=== PATIENT | male | born 1980 | race Caucasian/White ===

== ENCOUNTER 2020-09-18 12:44 | Observation (INO) | payer OTHER ==
--- NOTE | 2020-09-18 12:53 | ERPHSYRPT ---
- History of Present Illness Time Seen by Provider: 09/18/20 13:00 Historian: patient Physician History: Patient is a 40-year-old male presents to our ED with complaints of left-sided chest pain. Chest pain started this morning as he was getting ready for work. Chest pain described as a ache and is intermittent. Pain tends to radiate down his left arm. No associated nausea vomiting or diaphoresis. Patient denies a history of the same. Symptoms are mild to moderate in intensity. No specific worsening or improving factors. Patient voices no other complaints or concerns at this time. Timing/Duration: today Activities at Onset: other Quality: aching (Getting ready for work when pain started.) Location: other (Last) Chest Pain Radiation: arm Severity of Pain-Max: moderate Severity of Pain-Current: mild Modifying Factors: Improves With: nothing Associated Symptoms: No nausea, No vomiting, No palpitations, No heartburn, No abdominal pain, No shortness of breath, No cough, No hurts to breathe, No diaphoresis, No chills, No fever, No fatigue, No weakness, No syncope, No rash, No headache, No dizziness, No edema Prior Chest Pain/Cardiac Workup: no prior chest pain Nitro Today/Relief: no nitro taken today Aspirin Treatment Today: no aspirin today Allergies/Adverse Reactions: No Known Drug Allergies Allergy (Verified 09/18/20 12:56) - Review of Systems Constitutional: No Symptoms, No Fever, No Chills Eyes: No Symptoms Ears, Nose, & Throat: No Symptoms Respiratory: No Symptoms, No Cough, No Dyspnea Cardiac: No Symptoms, No Chest Pain, No Edema, No Syncope Abdominal/Gastrointestinal: No Symptoms, No Abdominal Pain, No Nausea, No Vomiting, No Diarrhea Genitourinary Symptoms: No Symptoms, No Dysuria Musculoskeletal: No Symptoms, No Back Pain, No Neck Pain Skin: No Symptoms, No Rash Neurological: No Symptoms, No Dizziness, No Focal Weakness, No Sensory Changes Psychological: No Symptoms Endocrine: No Symptoms Hematologic/Lymphatic: No Symptoms Immunological/Allergic: No Symptoms All Other Systems: Reviewed and Negative - Nursing Vital Signs Nursing Vital Signs: Initial Vital Signs Temperature 98.9 F 09/18/20 12:47 Pulse Rate 72 09/18/20 12:47 Respiratory Rate 20 09/18/20 12:47 Blood Pressure 154/84 09/18/20 12:47 O2 Sat by Pulse Oximetry 99 11/24/20 12:47 Pain Scale Pain Intensity 0 - Physical Exam General Appearance: no apparent distress, alert Eye Exam: PERRL/EOMI, eyes nml inspection Ears, Nose, Throat Exam: normal ENT inspection, moist mucous membranes Neck Exam: normal inspection, non-tender, supple, full range of motion Respiratory Exam: normal breath sounds, lungs clear, No respiratory distress Cardiovascular Exam: regular rate/rhythm, normal heart sounds Gastrointestinal/Abdomen Exam: soft, No tenderness, No mass Back Exam: normal inspection, No CVA tenderness, No vertebral tenderness Extremity Exam: normal inspection, normal range of motion Neurologic Exam: alert, oriented x 3, cooperative, normal mood/affect, sensation nml, No motor deficits Skin Exam: normal color, warm, dry SpO2 Interpretation: normal SpO2: 98 O2 Delivery: Room Air - Course Nursing assessment & vital signs reviewed: Yes EKG Interpreted by Me: RATE (76), Sinus Rhythm, NORMAL AXIS, NORMAL INTERVALS - Radiology Exams Chest X-ray Interpretation: Teleradiologist Report (No acute pathology observed on chest x-ray.) Ordered Tests: Active Orders 24 hr Category Date Time Status High Density Press Operator STAT Care 09/18/20 12:46 Active EKG-ER Only STAT Care 09/18/20 12:45 Active IV Insertion STAT Care 09/18/20 12:45 Active Pulse Oximetry (ED) STAT Care 09/18/20 12:45 Active CHEST 1 VIEW (PORTABLE) Stat Exams 09/18/20 12:46 Completed CBC W DIFF Stat Lab 09/18/20 13:15 Completed CMP Stat Lab 09/18/20 13:15 Completed D-DIMER QUANTITATIVE Stat Lab 09/18/20 13:15 Completed TROPONIN Q3H Lab 09/18/20 13:15 Completed TROPONIN Q3H Lab 09/18/20 16:00 Ordered TROPONIN Q3H Lab 09/18/20 19:00 Ordered TROPONIN Q3H Lab 09/18/20 22:00 Ordered TROPONIN Q3H Lab 09/19/20 01:00 Ordered Transfer Order Routine Transfer 09/18/20 Ordered Medication Summary Discontinued Medications Generic Name Dose Route Start Last Admin Trade Name Freq PRN Reason Stop Dose Admin Aspirin 324 mg 09/18/20 14:01 09/18/20 14:10 Baby Aspirin 81 Mg Chew PO 09/18/20 14:02 Not Given STAT ONE Nitroglycerin 1 gm 09/18/20 14:02 09/18/20 14:06 Nitro-Bid 2% Ud Packets TOP 09/18/20 14:03 1 gm STAT ONE Administration Nitroglycerin Confirm 09/18/20 14:05 Nitro-Bid 2% Ud Packets Administered 09/18/20 14:06 Dose 1 gm .ROUTE .STK-MED ONE Lab/Rad Data: Laboratory Result Diagrams 09/18/20 13:15 09/18/20 13:15 Laboratory Results 09/18/20 09/18/20 09/18/20 Range/Units 13:15 13:15 13:15 WBC (4.0-10.5) K/mm3 RBC (4.1-5.6) M/mm3 Hgb (12.5-18.0) gm/dl Hct (42-50) % MCV (78-100) fl MCH (26-32) pg MCHC (32-36) g/dl RDW (11.5-14.0) % Plt Count (150-450) K/mm3 MPV (7.5-11.0) fl Gran % (36.0-66.0) % Eos # (Auto) (0-0.5) Absolute Lymphs (auto) (1.0-4.6) Absolute Monos (auto) (0.0-1.3) Lymphocytes % (24.0-44.0) % Monocytes % (0.0-12.0) % Eosinophils % (0.00-5.0) % Basophils % (0.0-0.4) % Absolute Granulocytes (1.4-6.9) Basophils # (0-0.4) D-Dimer < 215 L (215-500) ng/mL Sodium 138 (137-145) mmol/L Potassium 4.7 (3.5-5.1) mmol/L Chloride 109 H (98-107) mmol/L Carbon Dioxide 22 (22-30) mmol/L Anion Gap 11.2 (5-15) MEQ/L BUN 17 (9-20) mg/dL Creatinine 0.82 (0.66-1.25) mg/dL Estimated GFR > 60.0 ML/MIN Glucose 102 (74-106) mg/dL Calcium 9.1 (8.4-10.2) mg/dL Total Bilirubin 0.60 (0.2-1.3) mg/dL AST 38 (17-59) U/L ALT 37 (0-50) U/L Alkaline Phosphatase 53 (38-126) U/L Troponin I < 0.012 (0.000-0.034) ng/mL Serum Total Protein 6.9 (6.3-8.2) g/dL Albumin 4.0 (3.5-5.0) g/dL 09/18/20 Range/Units 13:15 WBC 6.3 (4.0-10.5) K/mm3 RBC 5.25 (4.1-5.6) M/mm3 Hgb 16.1 (12.5-18.0) gm/dl Hct 45.2 (42-50) % MCV 86.1 (78-100) fl MCH 30.7 (26-32) pg MCHC 35.6 (32-36) g/dl RDW 12.4 (11.5-14.0) % Plt Count 240 (150-450) K/mm3 MPV 9.2 (7.5-11.0) fl Gran % 61.8 (36.0-66.0) % Eos # (Auto) 0.15 (0-0.5) Absolute Lymphs (auto) 1.76 (1.0-4.6) Absolute Monos (auto) 0.47 (0.0-1.3) Lymphocytes % 27.9 (24.0-44.0) % Monocytes % 7.4 (0.0-12.0) % Eosinophils % 2.4 (0.00-5.0) % Basophils % 0.5 (0.0-0.4) % Absolute Granulocytes 3.90 (1.4-6.9) Basophils # 0.03 (0-0.4) D-Dimer (215-500) ng/mL Sodium (137-145) mmol/L Potassium (3.5-5.1) mmol/L Chloride (98-107) mmol/L Carbon Dioxide (22-30) mmol/L Anion Gap (5-15) MEQ/L BUN (9-20) mg/dL Creatinine (0.66-1.25) mg/dL Estimated GFR ML/MIN Glucose (74-106) mg/dL Calcium (8.4-10.2) mg/dL Total Bilirubin (0.2-1.3) mg/dL AST (17-59) U/L ALT (0-50) U/L Alkaline Phosphatase (38-126) U/L Troponin I (0.000-0.034) ng/mL Serum Total Protein (6.3-8.2) g/dL Albumin (3.5-5.0) g/dL - Progress Progress: improved Air Movement: good Progress Note: 09/18/20 16:02 Patient reassessed. No active chest pain since aspirin and nitro paste applied. Patient is a significant family history of heart attacks, patient's grandfather had a heart attack at age 40s in light of patient's symptoms history of present illness we will admit for cardiac rule out possible stress test. Case discussed with Dr. Martel who accepts admission. Patient does not have a primary care doctor that covers our hospital so Dr. Martel will admit patient. Plan of care discussed with patient. He agrees to admission to [facility] for further evaluation and treatment. Blood Culture(s) Obtained: No Antibiotics given: No Discussed with : Dimitri Will see patient in: hospital (observation) Counseled pt/family regarding: lab results, diagnosis, rad results - Departure Departure Disposition: Observation Clinical Impression: ACS (acute coronary syndrome) Condition: Stable Critical Care Time: No Referrals: HAI MIR NP [Primary Care Provider] -
--- NOTE | 2020-09-18 13:11 | XRAY ---
Indication: Chest pain. Comparison: December 15, 2018. Portable chest unchanged again demonstrating minimal bibasilar subsegmental atelectasis/scarring. Remaining heart, lungs, and bony thorax again normal.
[2020-09-18 13:34] LABS: BASOPHIL % 0.5 % (0.0-0.4); Basophil (Absolute #) 0.03 (0-0.4); Eosinophil % 2.4 % (0.00-5.0); Eosinophil (Absolute #) 0.15 (0-0.5); Hematocrit 45.2 % (42-50); Hemoglobin 16.1 gm/dl (12.5-18.0); Lymphocyte (Absolute #) 1.76 (1.0-4.6); Lymphocytes % 27.9 % (24.0-44.0); Mean Cell Volume 86.1 fl (78-100); Mean Corpuscular Hemoglobin 30.7 pg (26-32); Mean Corpuscular Hgb Concent. 35.6 g/dl (32-36); Mean Platelet Volume 9.2 fl (7.5-11.0); Monocyte (Absolute #) 0.47 (0.0-1.3); Monocytes % 7.4 % (0.0-12.0); Neutrophil % 61.8 % (36.0-66.0); Platelet Count 240 K/mm3 (150-450); Red Blood Count 5.25 M/mm3 (4.1-5.6); Red Cell Distribution Width 12.4 % (11.5-14.0); White Blood Count 6.3 K/mm3 (4.0-10.5)
[2020-09-18 13:53] LABS: ALKALINE PHOSPHATASE 53 U/L (38-126); ANION GAP 11.2 MEQ/L (5-15); BLOOD UREA NITROGEN 17 mg/dL (9-20); CHLORIDE 109 mmol/L (98-107); Calcium 9.1 mg/dL (8.4-10.2); Carbon Dioxide 22 mmol/L (22-30); Creatinine 1 0.82 mg/dL (0.66-1.25); EST GLOMERULAR FILTRATION RATE > 60.0 ML/MIN; Glucose 102 mg/dL (74-106); Potassium 4.7 mmol/L (3.5-5.1); SGOT/AST 38 U/L (17-59); SGPT/ALT 37 U/L (0-50); SODIUM 138 mmol/L (137-145); Total Protein 6.9 g/dL (6.3-8.2)
[2020-09-18] MEDS ORDERED: BABY ASPIRIN 81 MG CHEW PO ONE (14:01)
[2020-09-18] MEDS ORDERED: NITRO-BID 2% UD PACKETS TOP ONE (14:02)
[2020-09-18] MEDS ORDERED: NITRO-BID 2% UD PACKETS ONE (14:05)
[2020-09-18] MEDS ORDERED: MILK OF MAGNESIA 30 ML PO PRN (16:21)
[2020-09-18] MEDS ORDERED: Zofran 4 MG/2 ML VIAL IV PRN (16:21)
[2020-09-18] MEDS ORDERED: Senokot-S Tablet PO PRN (16:21)
[2020-09-18] MEDS ORDERED: MAALOX ES 30 ML UNIT DOSE PO PRN (16:21)
[2020-09-18] MEDS ORDERED: MORPHINE SULFATE 2 MG INJ IV ONE (19:05)
[2020-09-18] MEDS: TYLENOL 325 MG PO PRN (22:08)
[2020-09-19 01:50] LABS: Risk Ratio 6.1
[2020-09-19] MEDS: TYLENOL 325 MG PO PRN (08:18)
--- NOTE | 2020-09-19 08:40 | PCM.SSS ---
History of Present Illness - Chief Complaint Chief Complaint: ACS History of Present Illness: is a 40 year old male with no local physician who arrived to the ER yesterday, he had acute onset of left sided chest pain on his way to work yesterday. He describes a dull aching that was severe and radiated to his left arm. There was no associated nausea, shortness of breath or diaphoresis. He states the pain was severe enough that it brought him to tears. He responded to aspirin and nitro well in the ER, now has some headache, states he had some mild dull ache in his chest overnight but nothing severe. He has a strong family history of premature coronary disease and his mother has what sounds like a tachy-arrythmia of some sort. - Review of Systems Constitutional: No Fever, No Chills Respiratory: No Cough, No Short Of Breath Cardiac: Chest Pain Abdominal/Gastrointestinal: No Abdominal Pain, No Nausea, No Vomiting, No Diarrhea Genitourinary Symptoms: No Dysuria Skin: No Rash Neurological: No Dizziness, No Focal Weakness, No Sensory Changes All Other Systems: Reviewed and Negative Medications & Allergies Home Medications: Home Medication List Aspirin EC 81 mg [Ecotrin 81 mg] 81 mg PO DAILY #30 tablet 09/19/20 [Rx] Atorvastatin Calcium 20 mg PO DAILY #30 tablet 09/19/20 [Rx] Nitroglycerin 0.4 mg Tablet [Nitrostat 0.4 MG Tablet] 0.4 mg SL UD #25 bottle 09/19/20 [Rx] Allergies/Adverse Reactions: Allergies Allergy/AdvReac Type Severity Reaction Status Date / Time No Known Drug Allergies Allergy Verified 09/18/20 12:56 - Past Medical History Past Medical History: No Neurological History: No Pertinent History ENT History: No Pertinent History Cardiac History: No Pertinent History Respiratory History: No Pertinent History Endocrine Medical History: No Pertinent History Musculoskelatal History: No Pertinent History GI Medical History: No Pertinent History History: No Pertinent History Pyscho-Social History: No Pertinent History Male Reproductive Disorders: No Pertinent History - Past Surgical History Past Surgical History: Yes GI Surgical History: Cholecystectomy - Social History Smoking Status: Never smoker Exposure to second hand smoke: No Alcohol: Daily Drug Use: none - Physical Exam Vital Signs: Vital Signs - 24 hr Temp Pulse Resp BP Pulse Ox 09/19/20 08:00 97.9 F 74 16 152/76 96 09/19/20 04:22 97.7 F 66 15 128/65 97 09/18/20 23:51 98.0 F 68 18 107/52 98 09/18/20 20:19 98.1 F 72 20 159/77 97 09/18/20 17:00 122/63 98 09/18/20 16:53 97.9 F 68 16 122/63 96 09/18/20 16:21 97.9 F 68 16 122/63 96 09/18/20 16:04 98 09/18/20 16:00 97.9 F 68 16 122/63 96 09/18/20 15:43 69 14 114/64 97 09/18/20 14:55 98.2 F 72 20 123/70 98 09/18/20 13:56 98.2 F 74 20 110/73 98 09/18/20 12:58 98 09/18/20 12:47 98.9 F 72 20 154/84 99 General Appearance: no apparent distress, alert Neurologic Exam: alert, oriented x 3, cooperative, normal mood/affect, nml cerebellar function, nml station & gait, sensation nml, No motor deficits Respiratory Exam: normal breath sounds, lungs clear, No respiratory distress Cardiovascular Exam: regular rate/rhythm, normal heart sounds, normal peripheral pulses Gastrointestinal/Abdomen Exam: soft, normal bowel sounds, No tenderness, No mass Extremity Exam: normal inspection, normal range of motion, pelvis stable Skin Exam: normal color, warm, dry, No rash Results - Labs Lab/Micro Results: Lab Results-Last 24 Hours 09/18/20 09/18/20 09/18/20 Range/Units 13:15 13:15 13:15 WBC 6.3 (4.0-10.5) K/mm3 RBC 5.25 (4.1-5.6) M/mm3 Hgb 16.1 (12.5-18.0) gm/dl Hct 45.2 (42-50) % MCV 86.1 (78-100) fl MCH 30.7 (26-32) pg MCHC 35.6 (32-36) g/dl RDW 12.4 (11.5-14.0) % Plt Count 240 (150-450) K/mm3 MPV 9.2 (7.5-11.0) fl Gran % 61.8 (36.0-66.0) % Eos # (Auto) 0.15 (0-0.5) Absolute Lymphs (auto) 1.76 (1.0-4.6) Absolute Monos (auto) 0.47 (0.0-1.3) Lymphocytes % 27.9 (24.0-44.0) % Monocytes % 7.4 (0.0-12.0) % Eosinophils % 2.4 (0.00-5.0) % Basophils % 0.5 (0.0-0.4) % Absolute Granulocytes 3.90 (1.4-6.9) Basophils # 0.03 (0-0.4) D-Dimer < 215 L (215-500) ng/mL Sodium 138 (137-145) mmol/L Potassium 4.7 (3.5-5.1) mmol/L Chloride 109 H (98-107) mmol/L Carbon Dioxide 22 (22-30) mmol/L Anion Gap 11.2 (5-15) MEQ/L BUN 17 (9-20) mg/dL Creatinine 0.82 (0.66-1.25) mg/dL Estimated GFR > 60.0 ML/MIN Glucose 102 (74-106) mg/dL Calcium 9.1 (8.4-10.2) mg/dL Total Bilirubin 0.60 (0.2-1.3) mg/dL AST 38 (17-59) U/L ALT 37 (0-50) U/L Alkaline Phosphatase 53 (38-126) U/L Troponin I (0.000-0.034) ng/mL Serum Total Protein 6.9 (6.3-8.2) g/dL Albumin 4.0 (3.5-5.0) g/dL Triglycerides (30-150) mg/dL Cholesterol (50-200) mg/dL LDL Cholesterol (30-100) mg/dL HDL Cholesterol (40-60) mg/dL Heart Disease Risk Ratio 09/18/20 09/18/20 09/18/20 Range/Units 13:15 16:07 19:00 WBC (4.0-10.5) K/mm3 RBC (4.1-5.6) M/mm3 Hgb (12.5-18.0) gm/dl Hct (42-50) % MCV (78-100) fl MCH (26-32) pg MCHC (32-36) g/dl RDW (11.5-14.0) % Plt Count (150-450) K/mm3 MPV (7.5-11.0) fl Gran % (36.0-66.0) % Eos # (Auto) (0-0.5) Absolute Lymphs (auto) (1.0-4.6) Absolute Monos (auto) (0.0-1.3) Lymphocytes % (24.0-44.0) % Monocytes % (0.0-12.0) % Eosinophils % (0.00-5.0) % Basophils % (0.0-0.4) % Absolute Granulocytes (1.4-6.9) Basophils # (0-0.4) D-Dimer (215-500) ng/mL Sodium (137-145) mmol/L Potassium (3.5-5.1) mmol/L Chloride (98-107) mmol/L Carbon Dioxide (22-30) mmol/L Anion Gap (5-15) MEQ/L BUN (9-20) mg/dL Creatinine (0.66-1.25) mg/dL Estimated GFR ML/MIN Glucose (74-106) mg/dL Calcium (8.4-10.2) mg/dL Total Bilirubin (0.2-1.3) mg/dL AST (17-59) U/L ALT (0-50) U/L Alkaline Phosphatase (38-126) U/L Troponin I < 0.012 < 0.012 < 0.012 (0.000-0.034) ng/mL Serum Total Protein (6.3-8.2) g/dL Albumin (3.5-5.0) g/dL Triglycerides (30-150) mg/dL Cholesterol (50-200) mg/dL LDL Cholesterol (30-100) mg/dL HDL Cholesterol (40-60) mg/dL Heart Disease Risk Ratio 09/18/20 09/19/20 09/19/20 Range/Units 22:05 01:28 01:28 WBC (4.0-10.5) K/mm3 RBC (4.1-5.6) M/mm3 Hgb (12.5-18.0) gm/dl Hct (42-50) % MCV (78-100) fl MCH (26-32) pg MCHC (32-36) g/dl RDW (11.5-14.0) % Plt Count (150-450) K/mm3 MPV (7.5-11.0) fl Gran % (36.0-66.0) % Eos # (Auto) (0-0.5) Absolute Lymphs (auto) (1.0-4.6) Absolute Monos (auto) (0.0-1.3) Lymphocytes % (24.0-44.0) % Monocytes % (0.0-12.0) % Eosinophils % (0.00-5.0) % Basophils % (0.0-0.4) % Absolute Granulocytes (1.4-6.9) Basophils # (0-0.4) D-Dimer (215-500) ng/mL Sodium (137-145) mmol/L Potassium (3.5-5.1) mmol/L Chloride (98-107) mmol/L Carbon Dioxide (22-30) mmol/L Anion Gap (5-15) MEQ/L BUN (9-20) mg/dL Creatinine (0.66-1.25) mg/dL Estimated GFR ML/MIN Glucose (74-106) mg/dL Calcium (8.4-10.2) mg/dL Total Bilirubin (0.2-1.3) mg/dL AST (17-59) U/L ALT (0-50) U/L Alkaline Phosphatase (38-126) U/L Troponin I < 0.012 < 0.012 (0.000-0.034) ng/mL Serum Total Protein (6.3-8.2) g/dL Albumin (3.5-5.0) g/dL Triglycerides 329 H (30-150) mg/dL Cholesterol 166 (50-200) mg/dL LDL Cholesterol 99 (30-100) mg/dL HDL Cholesterol 27 L (40-60) mg/dL Heart Disease Risk Ratio 6.1 - Radiology Impressions Radiology Exams & Impressions: Radiology Procedures Category Date Time Status CHEST 1 VIEW (PORTABLE) Stat Exams 09/18/20 12:46 Completed ECHO W/2D AND DOPPLER [US] Routine Exams 09/19/20 Ordered - Other Procedures and Tests Respiratory Therapy 09/20/20 05:00 EKG ONCE 09/21/20 05:00 EKG ONCE Assessment/Plan (1) Chest pain Current Visit: Yes Status: Acute Assessment & Plan: OH ruled out, d-dimer was negative in ER. will obtain echo and get telecardiology consult today. suggest outpatient stress test and cardiology followup due to symptomatology and strong risk factor of family history (even though calculated 10 year AHA risk is less than 5%). will add aspirin 81mg daily and statin therapy at this time based on risk and lipid panel. discussed use of nitro prn Code(s): R07.9 - CHEST PAIN, UNSPECIFIED (2) Dyslipidemia Current Visit: Yes Status: Acute Assessment & Plan: add lipitor 20mg daily Code(s): E78.5 - HYPERLIPIDEMIA, UNSPECIFIED Hospital Summary - Vitals & Intake/Output Vital Signs: Vital Signs Temperature 97.9 F 09/19/20 08:00 Pulse Rate 74 09/19/20 08:00 Respiratory Rate 16 09/19/20 08:00 Blood Pressure 152/76 09/19/20 08:00 O2 Sat by Pulse Oximetry 96 09/19/20 08:00 Intake & Output: Intake & Output 09/16/20 09/17/20 09/18/20 09/19/20 11:59 11:59 11:59 11:59 Intake Total 640 Balance 640 Weight 108.8 kg - Lab Result Diagrams: 09/18/20 13:15 09/18/20 13:15 Lab Results-Last 24 Hrs: Lab Results-Last 24 Hours 09/18/20 09/18/20 09/18/20 Range/Units 13:15 13:15 13:15 WBC 6.3 (4.0-10.5) K/mm3 RBC 5.25 (4.1-5.6) M/mm3 Hgb 16.1 (12.5-18.0) gm/dl Hct 45.2 (42-50) % MCV 86.1 (78-100) fl MCH 30.7 (26-32) pg MCHC 35.6 (32-36) g/dl RDW 12.4 (11.5-14.0) % Plt Count 240 (150-450) K/mm3 MPV 9.2 (7.5-11.0) fl Gran % 61.8 (36.0-66.0) % Eos # (Auto) 0.15 (0-0.5) Absolute Lymphs (auto) 1.76 (1.0-4.6) Absolute Monos (auto) 0.47 (0.0-1.3) Lymphocytes % 27.9 (24.0-44.0) % Monocytes % 7.4 (0.0-12.0) % Eosinophils % 2.4 (0.00-5.0) % Basophils % 0.5 (0.0-0.4) % Absolute Granulocytes 3.90 (1.4-6.9) Basophils # 0.03 (0-0.4) D-Dimer < 215 L (215-500) ng/mL Sodium 138 (137-145) mmol/L Potassium 4.7 (3.5-5.1) mmol/L Chloride 109 H (98-107) mmol/L Carbon Dioxide 22 (22-30) mmol/L Anion Gap 11.2 (5-15) MEQ/L BUN 17 (9-20) mg/dL Creatinine 0.82 (0.66-1.25) mg/dL Estimated GFR > 60.0 ML/MIN Glucose 102 (74-106) mg/dL Calcium 9.1 (8.4-10.2) mg/dL Total Bilirubin 0.60 (0.2-1.3) mg/dL AST 38 (17-59) U/L ALT 37 (0-50) U/L Alkaline Phosphatase 53 (38-126) U/L Troponin I (0.000-0.034) ng/mL Serum Total Protein 6.9 (6.3-8.2) g/dL Albumin 4.0 (3.5-5.0) g/dL Triglycerides (30-150) mg/dL Cholesterol (50-200) mg/dL LDL Cholesterol (30-100) mg/dL HDL Cholesterol (40-60) mg/dL Heart Disease Risk Ratio 09/18/20 09/18/20 09/18/20 Range/Units 13:15 16:07 19:00 WBC (4.0-10.5) K/mm3 RBC (4.1-5.6) M/mm3 Hgb (12.5-18.0) gm/dl Hct (42-50) % MCV (78-100) fl MCH (26-32) pg MCHC (32-36) g/dl RDW (11.5-14.0) % Plt Count (150-450) K/mm3 MPV (7.5-11.0) fl Gran % (36.0-66.0) % Eos # (Auto) (0-0.5) Absolute Lymphs (auto) (1.0-4.6) Absolute Monos (auto) (0.0-1.3) Lymphocytes % (24.0-44.0) % Monocytes % (0.0-12.0) % Eosinophils % (0.00-5.0) % Basophils % (0.0-0.4) % Absolute Granulocytes (1.4-6.9) Basophils # (0-0.4) D-Dimer (215-500) ng/mL Sodium (137-145) mmol/L Potassium (3.5-5.1) mmol/L Chloride (98-107) mmol/L Carbon Dioxide (22-30) mmol/L Anion Gap (5-15) MEQ/L BUN (9-20) mg/dL Creatinine (0.66-1.25) mg/dL Estimated GFR ML/MIN Glucose (74-106) mg/dL Calcium (8.4-10.2) mg/dL Total Bilirubin (0.2-1.3) mg/dL AST (17-59) U/L ALT (0-50) U/L Alkaline Phosphatase (38-126) U/L Troponin I < 0.012 < 0.012 < 0.012 (0.000-0.034) ng/mL Serum Total Protein (6.3-8.2) g/dL Albumin (3.5-5.0) g/dL Triglycerides (30-150) mg/dL Cholesterol (50-200) mg/dL LDL Cholesterol (30-100) mg/dL HDL Cholesterol (40-60) mg/dL Heart Disease Risk Ratio 09/18/20 09/19/20 09/19/20 Range/Units 22:05 01:28 01:28 WBC (4.0-10.5) K/mm3 RBC (4.1-5.6) M/mm3 Hgb (12.5-18.0) gm/dl Hct (42-50) % MCV (78-100) fl MCH (26-32) pg MCHC (32-36) g/dl RDW (11.5-14.0) % Plt Count (150-450) K/mm3 MPV (7.5-11.0) fl Gran % (36.0-66.0) % Eos # (Auto) (0-0.5) Absolute Lymphs (auto) (1.0-4.6) Absolute Monos (auto) (0.0-1.3) Lymphocytes % (24.0-44.0) % Monocytes % (0.0-12.0) % Eosinophils % (0.00-5.0) % Basophils % (0.0-0.4) % Absolute Granulocytes (1.4-6.9) Basophils # (0-0.4) D-Dimer (215-500) ng/mL Sodium (137-145) mmol/L Potassium (3.5-5.1) mmol/L Chloride (98-107) mmol/L Carbon Dioxide (22-30) mmol/L Anion Gap (5-15) MEQ/L BUN (9-20) mg/dL Creatinine (0.66-1.25) mg/dL Estimated GFR ML/MIN Glucose (74-106) mg/dL Calcium (8.4-10.2) mg/dL Total Bilirubin (0.2-1.3) mg/dL AST (17-59) U/L ALT (0-50) U/L Alkaline Phosphatase (38-126) U/L Troponin I < 0.012 < 0.012 (0.000-0.034) ng/mL Serum Total Protein (6.3-8.2) g/dL Albumin (3.5-5.0) g/dL Triglycerides 329 H (30-150) mg/dL Cholesterol 166 (50-200) mg/dL LDL Cholesterol 99 (30-100) mg/dL HDL Cholesterol 27 L (40-60) mg/dL Heart Disease Risk Ratio 6.1 - Radiology Exams Ordered Rad Exams-Entire Visit: Radiology Procedures Category Date Time Status CHEST 1 VIEW (PORTABLE) Stat Exams 09/18/20 12:46 Completed ECHO W/2D AND DOPPLER [US] Routine Exams 09/19/20 Ordered - Procedures and Test Procedures and Tests throughout Hospitalization: Therapy Orders & Screens 09/18/20 20:45 EKG ONCE Comment: Diagnosis: ACS 09/19/20 05:00 EKG ONCE Comment: Diagnosis: ACS 09/20/20 05:00 EKG ONCE Comment: Diagnosis: ACS 09/21/20 05:00 EKG ONCE Comment: Diagnosis: ACS - Discharge Disposition: Home, Self-Care Condition: Stable Prescriptions: New Atorvastatin Calcium 20 mg PO DAILY #30 tablet Aspirin EC 81 mg [Ecotrin 81 mg] 81 mg PO DAILY #30 tablet Nitroglycerin 0.4 mg Tablet [Nitrostat 0.4 MG Tablet] 0.4 mg SL UD #25 bottle Follow up with: TRICIA YANEZ MD [ACTIVE STAFF] - 2 weeks
[2020-09-19] MEDS ORDERED: MOTRIN 600 MG PO ONE (09:57)
[2020-09-19 12:15] VITALS: O2SAT 97
[2020-09-19 16:12] VITALS: BP 128/85; PULSE 89
== END 2020-09-19 17:14 | disposition home or self-care (01) ==
LOC: ED 12:44 → MED SURG 16:10
PROVIDERS: ADMIT Family Medicine; ATTEND Family Medicine
DX: R07.9 Chest pain, unspecified (principal); E78.5 Hyperlipidemia, unspecified; F17.200 Nicotine dependence, unspecified, uncomplicated; R51.9 Headache, unspecified; E78.00 Pure hypercholesterolemia, unspecified; Z82.49 Family history of ischemic heart disease and other diseases of the circulatory system; Z79.899 Other long term (current) drug therapy
CPT/HCPCS: 36000; 36415; 71045; 80053; 80061; 83721; 84484; 85025; 85379; 93005; 93041; 93268; 93306; 94760; 99285; G0378; Q3014; J2270; A9270-GY